=== PATIENT | male | born 1950 | race Hispanic/Latino ===

== ENCOUNTER 2018-08-29 11:15 | Emergency (ER) | payer OTHER, MEDICARE ==
[~2018-08-29 11:15] MED LIST: MULT-462 PO
[2018-08-29 11:50] LABS: BASOPHILS % (AUTO) 0.3 % (0.0-5.0); EOSINOPHILS % (AUTO) 3.2 % (0.0-8.0); HEMATOCRIT 44.1 % (42-54); LYMPHOCYTES % (AUTO) 24.3 % (21.0-51.0); MEAN CORPUSCULAR HEMOGLOBIN 28.9 pg (27.0-33.0); MEAN CORPUSCULAR HGB CONC 33.3 g/dL (32.0-36.0); MONOCYTES % (AUTO) 6.8 % (3.0-13.0); NEUTROPHILS % (AUTO) 65.4 % (40.0-77.0); PLATELET COUNT (AUTO) 302 K/uL (130-400); RED BLOOD CELL COUNT(AUTO) 5.07 MIL/uL (4.50-6.20); RED CELL DISTRIBUTION WIDTH 13.8 % (11.0-15.5); WHITE BLOOD COUNT (AUTO) 5.4 K/uL (4.8-10.8)
[2018-08-29 11:51] LABS: APPEARANCE,URINE Clear (CLEAR); BILIRUBIN,URINE Small (NEGATIVE); COLOR,URINE Dark Yellow (YELLOW); GLUCOSE, URINE (UA) TRACE mg/dL (NEGATIVE); KETONES,URINE Trace mg/dL (NEGATIVE); LEUKOCYTE ESTERASE ,URINE Negative (NEGATIVE); NITRATE,URINE Negative (NEGATIVE); OCCULT BLOOD,URINE Negative (NEGATIVE); PH,URINE 5.5 (5.0-8.0); PROTEIN,URINE POS 2+ (NEGATIVE)
[2018-08-29 11:52] LABS: CREATININE 0.9 mg/dL (0.5-1.5); POTASSIUM 3.8 mmol/L (3.5-5.1)
[2018-08-29 11:57] LABS: ALBUMIN 4.1 g/dL (3.5-5.0); BILIRUBIN,TOTAL 0.5 mg/dL (0.2-1.0); TOTAL PROTEIN, SERUM 8.8 g/dL (6.0-8.3)
[2018-08-29 12:04] LABS: BACTERIA,URINE Rare /HPF (None Seen); MUCUS,URINE Many LPF (None Seen); RBC,URINE None Seen /HPF (0-1); SQUAMOUS EPITHELIAL CELL,UR Rare /HPF (0-2); WBC,URINE 0-1 /HPF (0-1)
[2018-08-29 13:28] LABS: OCCULT BLOOD STOOL SINGLE ONLY NEGATIVE (NEGATIVE)
[2018-08-29] MEDS ORDERED: SODIUM CHLORIDE 0.9% 1000ML 1,000 ML IV ONE (13:58)
== END 2018-08-29 14:43 | disposition home or self-care (01) ==
LOC: EDH 11:15
DX: A08.4 Viral intestinal infection, unspecified (principal); E86.0 Dehydration; M19.90 Unspecified osteoarthritis, unspecified site; Z98.890 Other specified postprocedural states; Z87.891 Personal history of nicotine dependence
CPT/HCPCS: 36415; 80053; 81001; 82270; 85025; 87046; 87324; 96360; 99283; J7030

== ENCOUNTER 2019-01-28 10:26 | Inpatient (IN) | payer MEDICARE ==
[~2019-01-28] VITALS: Ht 190.5 cm; Wt 90.2 kg
[2019-01-28 11:01] LABS: BASOPHILS % (AUTO) 0.1 % (0.0-5.0); EOSINOPHILS % (AUTO) 1.2 % (0.0-8.0); HEMATOCRIT 44.7 % (42-54); LYMPHOCYTES % (AUTO) 5.6 % (21.0-51.0); MEAN CORPUSCULAR HEMOGLOBIN 29.8 pg (27.0-33.0); MEAN CORPUSCULAR HGB CONC 33.7 g/dL (32.0-36.0); MEAN CORPUSCULAR VOLUME 88.5 fL (79-99); MONOCYTES % (AUTO) 2.2 % (3.0-13.0); NEUTROPHILS % (AUTO) 90.9 % (40.0-77.0); NUCLEATED RED BLOOD CELLS 0.1 % (0.0-0.19); PLATELET COUNT (AUTO) 252 K/uL (130-400); RED BLOOD CELL COUNT(AUTO) 5.05 MIL/uL (4.50-6.20); RED CELL DISTRIBUTION WIDTH 13.5 % (11.0-15.5); WHITE BLOOD COUNT (AUTO) 8.1 K/uL (4.8-10.8)
[2019-01-28 11:11] LABS: CREATININE 0.8 mg/dL (0.5-1.5)
[2019-01-28 11:15] LABS: ALBUMIN 4.1 g/dL (3.5-5.0); BILIRUBIN,TOTAL 0.8 mg/dL (0.2-1.0); TOTAL PROTEIN, SERUM 8.5 g/dL (6.0-8.3)
[2019-01-28] MEDS ORDERED: ACETAMINOPHEN EXTRA STRENGTH 500 MG TABLET ONE (11:17)
[2019-01-28] MEDS ORDERED: ONDANSETRON HCL 4 MG/2 ML VIAL ONE (11:17)
[2019-01-28] MEDS ORDERED: SODIUM CHLORIDE 0.9% 1000ML 1,000 ML IV ONE (11:18)
[2019-01-28] MEDS ORDERED: SODIUM CHLORIDE 0.9% 100 ML IV ONE (11:18)
[2019-01-28] MEDS ORDERED: METRONIDAZOLE 500MG/100ML BAG 100 ML ONE (12:02)
[2019-01-28] MEDS ORDERED: ZOSYN 3.375GM+NS 50ML 50 ML IV ONE (12:02)
[2019-01-28 12:08] LABS: INR 0.92 (0.85-1.15); PROTHROMBIN TIME 9.7 SEC (9.6-11.6)
[2019-01-28] MEDS ORDERED: LIDOCAINE HCL 2% JELLY 5 ML ONE (12:38)
[2019-01-28 14:11] LABS: APPEARANCE,URINE Clear (CLEAR); BILIRUBIN,URINE Negative (NEGATIVE); COLOR,URINE Yellow (YELLOW); GLUCOSE, URINE (UA) Negative (NEGATIVE); KETONES,URINE Negative (NEGATIVE); LEUKOCYTE ESTERASE ,URINE Negative (NEGATIVE); NITRATE,URINE Negative (NEGATIVE); OCCULT BLOOD,URINE Negative (NEGATIVE); PROTEIN,URINE Negative (NEGATIVE); UROBILINOGEN,URINE 0.2 mg/dL (0.2-1.0)
[2019-01-28 15:29] VITALS: BP 103/72
[2019-01-28] MEDS ORDERED: COMPOUND IV REFRIGERATED 1 EACH IVSOLN MISC PRN (16:00)
[2019-01-28] MEDS ORDERED: ACETAMINOPHEN 325 MG TAB PO PRN (16:00)
[2019-01-28] MEDS ORDERED: ONDANSETRON HCL 4 MG/2 ML VIAL IVP PRN (16:00)
[2019-01-28] MEDS: LACTATED RINGERS 1000ML 1,000 ML IV SCH (17:18)
[2019-01-28] MEDS ORDERED: MELO-106 PO (17:43)
[2019-01-28] MEDS: ERYTHROMYCIN LACTOBIONATE 250 MG in SODIUM CHLORIDE 0.9% 100 ML IV SCH ×2 (17:53→23:16)
[2019-01-28 20:00] VITALS: BP 99/61
--- NOTE | 2019-01-28 21:25 | NUR ---
PAIN MEDICATION. PT C/O SLIGHT HEADACHE, ONLY HAS ORDER FOR TYLENOL 650MG PO. MD KRISHNAN CALLED AND MADE AWARE PT IS NPO AND HAS NGT TO [facility]. PER MD EULOGIO BOWMAN TO [facility] NGT FOR 1 HOUR TO ADMINISTER TYLENOL, THEN RECONNECT NGT TO [facility].
--- NOTE | 2019-01-28 21:30 | NUR ---
HIGH COLONIC ENEMA ADMINISTERED PER MD ORDER AT THIS TIME. PT TOLERATED WELL.
[2019-01-28 23:37] VITALS: BP 98/59
[2019-01-29] VITALS (20 sets, daily range): BP systolic 100–122; BP diastolic 60–76
[2019-01-29] MEDS: LACTATED RINGERS 1000ML 1,000 ML IV SCH ×3 (02:21→23:14)
[2019-01-29 04:53] LABS: HEMATOCRIT 37.1 % (42-54); MEAN CORPUSCULAR HGB CONC 34.4 g/dL (32.0-36.0); MEAN CORPUSCULAR VOLUME 87.2 fL (79-99); NUCLEATED RED BLOOD CELLS 0.1 % (0.0-0.19); PLATELET COUNT (AUTO) 179 K/uL (130-400); RED BLOOD CELL COUNT(AUTO) 4.25 MIL/uL (4.50-6.20); RED CELL DISTRIBUTION WIDTH 13.6 % (11.0-15.5); WHITE BLOOD COUNT (AUTO) 4.4 K/uL (4.8-10.8)
[2019-01-29 05:10] LABS: MAGNESIUM 1.8 mg/dL (1.80-2.40); PHOSPHORUS 2.9 mg/dL (2.5-4.9); POTASSIUM 3.9 mmol/L (3.5-5.1)
[2019-01-29] MEDS ORDERED: PROPOFOL 10 MG/ML 20ML VIAL IV ONE ×4 (06:30→13:57)
[2019-01-29] MEDS ORDERED: LIDOCAINE HCL 1% 20 ML VIAL ONE (06:31)
[2019-01-29] MEDS: ZOSYN 3.375GM+NS 50ML 50 ML IV SCH ×3 (09:08→23:08)
[2019-01-29] MEDS ORDERED: MAGNESIUM 2GM PREMIX 50ML 50 ML IV PRN (12:30)
[2019-01-29] MEDS ORDERED: PHENYLEPHRINE HCL 10 MG/ML 1ML VIAL IV ONE (14:26)
--- NOTE | 2019-01-29 17:01 | NUR ---
DCP CM met with pt discussed dc plans. Pt is independent prior to admission, lives at home with spouse, son, and grandson. Denies any equipments/services. Pt feels safe to go back home, spouse and son able to assist with transportation and needs as necessary. DC plan to home once stable. CM to cont to follow up. Addendum: 01/29/19 at 1702 by BILL GALEANA LVN CM Amended: Links added.
[2019-01-30 03:00] VITALS: BP 123/69
[2019-01-30] MEDS: ZOSYN 3.375GM+NS 50ML 50 ML IV SCH ×3 (05:06→23:10)
[2019-01-30 05:32] LABS: HEMATOCRIT 37.7 % (42-54); MEAN CORPUSCULAR HEMOGLOBIN 30.2 pg (27.0-33.0); MEAN CORPUSCULAR HGB CONC 34.7 g/dL (32.0-36.0); MEAN CORPUSCULAR VOLUME 87.1 fL (79-99); NUCLEATED RED BLOOD CELLS 0.1 % (0.0-0.19); PLATELET COUNT (AUTO) 183 K/uL (130-400); RED BLOOD CELL COUNT(AUTO) 4.33 MIL/uL (4.50-6.20); RED CELL DISTRIBUTION WIDTH 13.4 % (11.0-15.5); WHITE BLOOD COUNT (AUTO) 3.9 K/uL (4.8-10.8)
[2019-01-30 05:41] LABS: ALBUMIN 3.2 g/dL (3.5-5.0); BILIRUBIN,TOTAL 0.7 mg/dL (0.2-1.0); CREATININE 0.9 mg/dL (0.5-1.5); MAGNESIUM 2.6 mg/dL (1.80-2.40); POTASSIUM 3.8 mmol/L (3.5-5.1)
[2019-01-30 07:44] VITALS: BP 104/66
[2019-01-30] MEDS: LACTATED RINGERS 1000ML 1,000 ML IV SCH ×2 (09:29→17:39)
[2019-01-30] MEDS: FAMOTIDINE/PF 20 MG/2 ML VIAL IV SCH ×2 (09:30→19:21)
[2019-01-30 11:31] VITALS: BP 116/72
[2019-01-30 16:07] VITALS: BP 118/69
[2019-01-30 19:13] VITALS: BP 120/76
[2019-01-30 23:17] VITALS: BP 119/76
[2019-01-31 03:54] VITALS: BP 116/71
[2019-01-31 06:17] LABS: HEMATOCRIT 35.8 % (42-54); MEAN CORPUSCULAR HEMOGLOBIN 29.2 pg (27.0-33.0); MEAN CORPUSCULAR HGB CONC 33.4 g/dL (32.0-36.0); MEAN CORPUSCULAR VOLUME 87.2 fL (79-99); NUCLEATED RED BLOOD CELLS 0.2 % (0.0-0.19); PLATELET COUNT (AUTO) 202 K/uL (130-400); RED CELL DISTRIBUTION WIDTH 13.3 % (11.0-15.5); WHITE BLOOD COUNT (AUTO) 4.1 K/uL (4.8-10.8)
[2019-01-31 06:27] LABS: CREATININE 0.8 mg/dL (0.5-1.5); POTASSIUM 3.6 mmol/L (3.5-5.1)
[2019-01-31] MEDS: LACTATED RINGERS 1000ML 1,000 ML IV SCH ×3 (06:27→23:27)
[2019-01-31 07:58] VITALS: BP 118/80
[2019-01-31] MEDS: FAMOTIDINE/PF 20 MG/2 ML VIAL IV SCH ×2 (09:54→19:49)
[2019-01-31] MEDS: ZOSYN 3.375GM+NS 50ML 50 ML IV SCH ×3 (09:54→23:26)
[2019-01-31 10:44] VITALS: BP 120/70
[2019-01-31 16:20] VITALS: BP 111/78
[2019-01-31 20:00] VITALS: BP 125/80
--- NOTE | 2019-01-31 20:00 | NUR ---
PM ASSESSMENT/ROUNDS PATIENT AWAKE AND ALERT, UP AD GABBY AMBULATING IN HALLWAY. NO COMPLAINTS OF PAIN VOICED AT THIS TIME. VITALS STABLE. AFEBRILE. TOLERATING CLEAR LIQUID DIET. NO NAUSEA OR VOMITING NOTED. LR INFUSING AT 100ML/HR. BOWEL SOUNDS AUDIBLE X4 QUADS. FLATULENCE PRESENT. SPOUSE AT SIDE. CALL LIGHT WITHIN REACH. WILL CONTINUE TO BE OBSERVED. Addendum: 01/31/19 at 2210 by DEENA ARVIZU RN RN Amended: Links added.
[2019-01-31 23:59] VITALS: BP 126/79
[2019-02-01 04:00] VITALS: BP 148/52
[2019-02-01 05:37] LABS: HEMATOCRIT 36.3 % (42-54); MEAN CORPUSCULAR HEMOGLOBIN 29.4 pg (27.0-33.0); MEAN CORPUSCULAR HGB CONC 33.7 g/dL (32.0-36.0); MEAN CORPUSCULAR VOLUME 87.1 fL (79-99); PLATELET COUNT (AUTO) 190 K/uL (130-400); RED BLOOD CELL COUNT(AUTO) 4.16 MIL/uL (4.50-6.20); RED CELL DISTRIBUTION WIDTH 13.6 % (11.0-15.5); WHITE BLOOD COUNT (AUTO) 3.8 K/uL (4.8-10.8)
[2019-02-01 05:50] LABS: CREATININE 0.9 mg/dL (0.5-1.5); MAGNESIUM 2.1 mg/dL (1.80-2.40); POTASSIUM 3.8 mmol/L (3.5-5.1)
[2019-02-01] MEDS: ZOSYN 3.375GM+NS 50ML 50 ML IV SCH ×3 (06:12→23:04)
[2019-02-01 08:17] VITALS: BP 146/80
[2019-02-01] MEDS: FAMOTIDINE/PF 20 MG/2 ML VIAL IV SCH ×2 (09:09→19:42)
[2019-02-01] MEDS: LACTATED RINGERS 1000ML 1,000 ML IV SCH ×2 (11:28→19:43)
[2019-02-01 13:41] VITALS: BP 118/75
[2019-02-01 16:33] VITALS: BP 109/76
[2019-02-01 19:51] VITALS: BP 121/74
[2019-02-02] VITALS: BP 103/62
[2019-02-02 04:00] VITALS: BP 98/58
[2019-02-02] MEDS: LACTATED RINGERS 1000ML 1,000 ML IV SCH ×2 (06:04→22:10)
[2019-02-02] MEDS: ZOSYN 3.375GM+NS 50ML 50 ML IV SCH ×3 (06:04→23:41)
[2019-02-02 08:33] VITALS: BP 111/70
[2019-02-02] MEDS: FAMOTIDINE/PF 20 MG/2 ML VIAL IV SCH ×2 (09:07→22:10)
[2019-02-02 11:34] VITALS: BP 108/68
[2019-02-02 16:27] VITALS: BP 114/74
[2019-02-02 19:55] VITALS: BP 121/76
[2019-02-03 00:17] VITALS: BP 106/57
[2019-02-03] MEDS: LACTATED RINGERS 1000ML 1,000 ML IV SCH (02:00)
[2019-02-03 04:06] VITALS: BP 138/86
[2019-02-03] MEDS: ZOSYN 3.375GM+NS 50ML 50 ML IV SCH (06:41)
[2019-02-03 08:13] VITALS: BP 113/82
[2019-02-03] MEDS: FAMOTIDINE/PF 20 MG/2 ML VIAL IV SCH (09:06)
--- NOTE | 2019-02-03 11:15 | NUR ---
pt d/c education given teach back mozambican and mongolian iv removed, catheter intact pt denies sob or chest pain
== END 2019-02-03 11:55 | disposition home or self-care (01) | DRG 872 ==
LOC: EDH 10:26 → EDHIP 12:25 → 4BH 15:03
PROVIDERS: ADMIT Internal Medicine Nephrology; ATTEND Internal Medicine Nephrology
PROC: 0D9670Z Drainage of Stomach with Drainage Device, Via Natural or Artificial Opening (ICD-10-PCS; 2019-01-28)
PROC: 0DBC8ZX Excision of Ileocecal Valve, Via Natural or Artificial Opening Endoscopic, Diagnostic (ICD-10-PCS; principal; 2019-01-29)
PROC: 0DBB8ZX Excision of Ileum, Via Natural or Artificial Opening Endoscopic, Diagnostic (ICD-10-PCS; 2019-01-29)
PROC: 0D7B8ZZ Dilation of Ileum, Via Natural or Artificial Opening Endoscopic (ICD-10-PCS; 2019-01-29)
PROC: 0DB38ZX Excision of Lower Esophagus, Via Natural or Artificial Opening Endoscopic, Diagnostic (ICD-10-PCS; 2019-01-29)
PROC: 0DB68ZX Excision of Stomach, Via Natural or Artificial Opening Endoscopic, Diagnostic (ICD-10-PCS; 2019-01-29)
DX: A41.9 Sepsis, unspecified organism (principal); K56.609 Unspecified intestinal obstruction, unspecified as to partial versus complete obstruction; K63.3 Ulcer of intestine; K59.39 Other megacolon; M19.90 Unspecified osteoarthritis, unspecified site; I10 Essential (primary) hypertension; K64.1 Second degree hemorrhoids; K21.0 Gastro-esophageal reflux disease with esophagitis; K29.00 Acute gastritis without bleeding; K31.89 Other diseases of stomach and duodenum; D64.9 Anemia, unspecified; I25.10 Atherosclerotic heart disease of native coronary artery without angina pectoris; Z90.49 Acquired absence of other specified parts of digestive tract; Z83.3 Family history of diabetes mellitus; Z82.49 Family history of ischemic heart disease and other diseases of the circulatory system; Z80.0 Family history of malignant neoplasm of digestive organs
CPT/HCPCS: 36415; 43239; 45380; 71045; 74176; 80048; 80053; 81003; 82150; 82550; 83690; 83735; 84100; 85025; 85027; 85610; 85730; 87040; 87804; 88305; 93005; G0378; J1364; J2370; J2405; J2543; J2704; J3475; J3490; J7030; J7120

== ENCOUNTER 2019-11-28 19:51 | Emergency (ER) | payer OTHER, MEDICARE ==
[~2019-11-28 19:51] MED LIST changes: +MELO-106 PO
[2019-11-28 20:17] LABS: BASOPHILS % (AUTO) 0.3 % (0.0-5.0); EOSINOPHILS % (AUTO) 3.2 % (0.0-8.0); HEMATOCRIT 40.1 % (42-54); LYMPHOCYTES % (AUTO) 27.1 % (21.0-51.0); MEAN CORPUSCULAR HEMOGLOBIN 29.5 pg (27.0-33.0); MEAN CORPUSCULAR HGB CONC 32.9 g/dL (32.0-36.0); MEAN CORPUSCULAR VOLUME 89.7 fL (79-99); MONOCYTES % (AUTO) 5.9 % (3.0-13.0); NEUTROPHILS % (AUTO) 62.7 % (40.0-77.0); PLATELET COUNT (AUTO) 226 K/uL (130-400); RED BLOOD CELL COUNT(AUTO) 4.47 MIL/uL (4.50-6.20); RED CELL DISTRIBUTION WIDTH 12.9 % (11.0-15.5); WHITE BLOOD COUNT (AUTO) 6.3 K/uL (4.8-10.8)
[2019-11-28 20:39] LABS: CREATININE 0.8 mg/dL (0.5-1.5)
[2019-11-28 20:49] LABS: ALBUMIN 3.8 g/dL (3.5-5.0); BILIRUBIN,TOTAL 0.3 mg/dL (0.2-1.0); TOTAL PROTEIN, SERUM 7.5 g/dL (6.0-8.3)
[2019-11-28 20:52] LABS: INR 0.92 (0.85-1.15); PARTIAL THROMBOPLASTIN TIME 28.5 SEC (26.3-35.5)
[2019-11-28] MEDS ORDERED: VALACYCLOVIR HCL 500 MG TABLET ONE (21:08)
[2019-11-28] MEDS ORDERED: METHYLPREDNISOLONE SOD SUCC 125MG/2ML VIAL ONE (21:09)
[2019-11-28 21:28] LABS: APPEARANCE,URINE Clear (CLEAR); BILIRUBIN,URINE Negative (NEGATIVE); COLOR,URINE Yellow (YELLOW); GLUCOSE, URINE (UA) Negative (NEGATIVE); KETONES,URINE Negative (NEGATIVE); LEUKOCYTE ESTERASE ,URINE Negative (NEGATIVE); NITRATE,URINE Negative (NEGATIVE); OCCULT BLOOD,URINE Negative (NEGATIVE); PH,URINE 5.5 (5.0-8.0); PROTEIN,URINE Negative (NEGATIVE)
== END 2019-11-28 21:56 | disposition home or self-care (01) ==
LOC: EDH 19:51
DX: G51.0 Bell's palsy (principal); R03.0 Elevated blood-pressure reading, without diagnosis of hypertension; M19.90 Unspecified osteoarthritis, unspecified site; I25.2 Old myocardial infarction
CPT/HCPCS: 36415; 70450; 71045; 80053; 81003; 82550; 82948; 84484; 85025; 85610; 85730; 93005; 96374; 99285; J2930

== ENCOUNTER 2022-08-01 11:31 | Emergency (ER) | payer OTHER, MEDICARE ==
[~2022-08-01 11:31] MED LIST changes: +DICY20TA3 PO; +ETOD300C13 PO; +GABA300S PO; -MELO-106 PO; +MIRT-73 PO; -MULT-462 PO; +SIME80TA13 PO; +SULF1TAB42 PO
== END 2022-08-01 12:33 | disposition left against medical advice (07) ==
LOC: EDH 11:31
DX: R52 Pain, unspecified (principal); Z53.21 Procedure and treatment not carried out due to patient leaving prior to being seen by health care provider

== ENCOUNTER → 2023-04-05 | Outpatient (CLI) | payer OTHER, MEDICARE ==
[~2023-04-05] MED LIST changes: +DIATR MEGLU/DIATRIZOATE SODIUM 30 ML BOTTLE ONE; +EPIN0.3P2 IM; +GABA-529 PO; -GABA300S PO; +LORA10TA7 PO; -MIRT-73 PO; +PRED20TA3 PO; -SIME80TA13 PO; -SULF1TAB42 PO
== END | disposition home or self-care (01) ==
LOC: RAH 08:11
PROVIDERS: ATTEND Student in an Organized Health Care Education/Training Program
DX: R10.33 Periumbilical pain (principal); K76.0 Fatty (change of) liver, not elsewhere classified
CPT/HCPCS: 76705; 74250; Q9963

== ENCOUNTER 2024-05-11 11:40 | Emergency (ER) | payer MEDICARE ==
[~2024-05-11] VITALS: Ht 188 cm; Wt 95.3 kg
[~2024-05-11 11:40] MED LIST changes: -DIATR MEGLU/DIATRIZOATE SODIUM 30 ML BOTTLE ONE
[2024-05-11] MEDS: ketOROlac 15MG/ML VIAL (15MG/ML) IV STA (12:40)
[2024-05-11] MEDS: 0.9%NACL 1000ML 1,000 ML IV STA (12:40)
[2024-05-11 12:47] LABS: APPEARANCE,URINE CLEAR (CLEAR); BILIRUBIN,URINE NEGATIVE (NEGATIVE); COLOR,URINE YELLOW (YELLOW); GLUCOSE, URINE (UA) NEGATIVE (NEGATIVE); KETONES,URINE NEGATIVE (NEGATIVE); LEUKOCYTE ESTERASE ,URINE NEGATIVE Leu/uL (NEGATIVE); NITRATE,URINE NEGATIVE (NEGATIVE); OCCULT BLOOD,URINE NEGATIVE (NEGATIVE); PROTEIN,URINE NEGATIVE (NEGATIVE)
[2024-05-11 12:53] LABS: CREATININE 0.8 mg/dL (0.5-1.3); POTASSIUM 4.7 mmol/L (3.5-5.1)
[2024-05-11 12:53] LABS: ADD UA MICROSCOPIC YES
[2024-05-11 12:55] LABS: MUCUS,URINE RARE LPF (None Seen); RBC,URINE 0-1 /HPF (0-1); WBC,URINE 0-1 /HPF (0-1)
[2024-05-11 13:06] LABS: BASOPHILS # (AUTO) 0.02 K/uL (0.00-0.20); BASOPHILS % (AUTO) 0.4 % (0.0-5.0); EOSINOPHILS # (AUTO) 0.13 K/uL (0.00-0.70); EOSINOPHILS % (AUTO) 2.8 % (0.0-8.0); HEMATOCRIT 40.1 % (42-54); IMMATURE GRANULOCYTE ABSOLUTE 0.04 K/uL (0-1); LYMPHOCYTES # (AUTO) 1.1 K/uL (1.0-4.8); LYMPHOCYTES % (AUTO) 23.9 % (21.0-51.0); MEAN CORPUSCULAR HEMOGLOBIN 28.1 pg (27.0-33.0); MEAN CORPUSCULAR HGB CONC 31.9 g/dL (32.0-36.0); MEAN CORPUSCULAR VOLUME 88.1 fL (79-99); MONOCYTES # (AUTO) 0.3 K/uL (0.1-1.0); NEUTROPHILS # (AUTO) 3.1 K/uL (1.8-7.7); PLATELET COUNT (AUTO) 248 K/uL (130-400); RED BLOOD CELL COUNT(AUTO) 4.55 MIL/uL (4.50-6.20); RED CELL DISTRIBUTION WIDTH 13.4 % (11.0-15.5); WHITE BLOOD COUNT (AUTO) 4.7 K/uL (4.8-10.8)
[2024-05-11] MEDS: ondanSETRON 4MG INJ IVP STA (13:48)
[2024-05-11] MEDS: morPHINE 2 MG SYG IVP STA (13:49)
[2024-05-11 14:25] VITALS: BP 127/84; PULSE 84; RESP 18; TEMP 98.6; O2SAT 98
[2024-05-11] MEDS ORDERED: METH100054 PO (14:31)
== END 2024-05-11 14:54 | disposition home or self-care (01) ==
LOC: EDH 11:40
DX: K80.20 Calculus of gallbladder without cholecystitis without obstruction (principal); N28.1 Cyst of kidney, acquired; I10 Essential (primary) hypertension; M19.90 Unspecified osteoarthritis, unspecified site; Z79.52 Long term (current) use of systemic steroids; Z79.899 Other long term (current) drug therapy; Z98.890 Other specified postprocedural states
CPT/HCPCS: 99285; 74176; 96374; 96375; 80048; 85025; 81001; 36415; J2270; J7030; J2405; J1885; 96361